=== PATIENT | male | born 1965 | race African-American/Black ===

== ENCOUNTER 2023-10-10 14:03 | Emergency (ER) | payer SELFPAY ==
[2023-10-10] VITALS (7 sets, daily range): BP systolic 81–128; BP diastolic 39–86; PULSE 60–78; RESP 16–18; TEMP 36.6–37; O2SAT 96–100; BMI 16.3
--- NOTE | 2023-10-10 | ECG_ITS ---
Test Reason : HYPOTENSION Blood Pressure : / mmHG Vent. Rate : 073 BPM Atrial Rate : 073 BPM P-R Int : 142 ms QRS Dur : 082 ms QT Int : 406 ms P-R-T Axes : 067 084 080 degrees QTc Int : 447 ms Normal sinus rhythm Possible Left atrial enlargement Borderline ECG No previous ECGs available Referred By: Generic ED Physician Electronically Signed By:DELANEY LAIRD MD
--- NOTE | ~2023-10-10 | CT_ITS ---
EXAMINATION: CT HEAD WITHOUT CONTRAST CLINICAL INFORMATION: Fall from wheelchair. COMPARISON: None available. TECHNIQUE: Contiguous axial imaging was performed from the skull base to vertex without intravenous administration of contrast. This CT examination was performed using dose optimization techniques as appropriate, variously including the following: *Automated exposure control. *Adjustment of mA and/or kV according to patient size (this includes techniques or standardized protocols for targeted exams where dose is matched to indication/reason for exam; i.e. extremities or head). *Use of iterative reconstruction technique. DLP: 647 mGy-cm FINDINGS: There is no evidence of acute intracranial hemorrhage or edematous territorial infarction. Dunham-white matter differentiation is preserved. A few foci of hypoattenuation in the periventricular and deep white matter are consistent with mild microangiopathy. Proportional prominence of the ventricles and sulcal spaces without evidence of obstructive hydrocephalus. No abnormal mass effect or midline shift. No extra-axial fluid collections. Metallic foreign bodies in the subcutaneous tissues of the posterior left side. Changes of instrumented posterior fusion of the lower cervical spine. No acute soft tissue or osseous abnormalities. Mild mucosal thickening of the paranasal sinuses. The mastoid air cells and middle ear cavities are clear. Chronic appearing depression of the left lamina papyracea. CT/CT head/brain wo IV con IMPRESSION: 1. No evidence of acute intracranial hemorrhage or edematous territorial infarction. 2. Mild underlying microangiopathy and generalized cerebral volume loss.
[2023-10-10] MEDS: Midodrine HCl 10 MG TABLET PO (14:37)
--- NOTE | 2023-10-10 14:40 | PC.NURSE ---
patient arrived via EMS from [facility], patient quadriplegic, per EMS patient fell out of chair yesterday + head strike -LOC. - Blood thinners. patient initially refused transport yesterday however facility was able to convince him this morning to come, EMS noted patient to be hypotensive with SBP in 80s, patient with no complaints, per EMS patient wanted to go to [facility] as that is where his doctors are but due to his BP they brought him here. MD at bedside to evaluate, patient to go to CT, no lab work at this time.
--- NOTE | 2023-10-10 15:43 | ED.FALL ---
HPI - Fall General Chief Complaint: Fall Stated Complaint: HYPOTENSION FALL Time Seen by Provider: 10/10/23 14:32 Source: patient Mode of arrival: EMS History of Present Illness ED Provider: Dr Salmon [facility] Narrative: 58-year-old male who is a quadriplegic at baseline, states that he fell out of his wheelchair yesterday, denies any use of chronic anticoagulation, denies any pain or acute complaints. Related Data Allergies Allergy/AdvReac Type Severity Reaction Status Date / Time Penicillins Allergy Itchy Eyes Verified 10/10/23 14:16 Sulfa (Sulfonamide Allergy Anaphylaxis Verified 10/10/23 14:16 Antibiotics) Review of Systems Review of Systems: Pertinent positives and negatives as stated in [facility] Past Medical History Source: nursing notes reviewed Social History Social History Smoked in Last 30 Days: No Advance Directives: No Advance Directives Information Provided: No Do you have a plan to hurt others: No Plan Physical Exam Vital Signs: Vital Signs: Last Vital Signs Temp 98.6 F 10/10/23 14:18 Pulse 72 10/10/23 15:22 Resp 16 10/10/23 15:22 BP 89/54 L 10/10/23 15:22 Pulse Ox 98 10/10/23 15:22 O2 Del Method Room Air 10/10/23 15:22 BMI result Body Mass Index 16.3 VITAL SIGNS: Reviewed. GENERAL: Well developed, well nourished, in no acute distress. HEAD: Normocephalic/atraumatic EYES: PERRLA, EOMI EARS: Ext canals without abnormality NOSE: Nares patent bilateral OROPHARYNX: no oral lesions noted, posterior pharynx clear NECK: Supple, no adenopathy LUNGS: Normal breath sounds. No adventitious sounds or accessory muscle use. SpO2<98> CARDIOVASCULAR: Regular rate and rhythm without noted murmurs ABDOMEN: Soft, non-tender, non-distended with bowel sounds. PELVIS: stable MUSCULOSKELETAL: No tenderness, deformities, or effusions noted on gross inspection. EXTREMITIES: No cyanosis, clubbing or edema. SKIN: Inspection of the skin reveals no rashes, ulcerations, jaundice, pallor, or petechiae. NEUROLOGIC: Alert and oriented x 4. Contracted extremities Medications Administered Discontinued Medications Generic Name Dose Route Start Last Admin Trade Name Freq PRN Reason Stop Dose Admin Midodrine 10 mg 10/10/23 14:32 10/10/23 14:37 Midodrine Hcl 10 Mg Tablet PO 10/10/23 14:33 10 mg ONCE ONE Administration Medical Decision Making Medical Decision Making [facility] Narrative: 58-year-old male with history and clinical presentation consistent with fall from wheelchair, I do not appreciate any traumatic injuries and no history of chronic anticoagulation but will scan of the head, patient is noted to have low blood pressure but suspect that this is stable for him at baseline given his neurologic status with quadriplegia. We did provide [address] scan negative for intracranial hemorrhage or mass effect and blood pressure remained stable, patient is conscious and has no evidence breathing difficulty and is oxygenating well. He is otherwise stable for discharge back to the facility. Differential Diagnosis Differential Diagnoses: The differential diagnosis associated with the presentation includes Please see the discussion above Admission/Observation Consideration of admission/observation: Escalation of care including admission/observation considered Please see the discussion above Radiology Impression Discussion of test interpretation with radiology: I have reviewed the radiologist's reading. Radiologist Impression: Please see the discussion above Critical Care Time Critical Care Time Critical Care Time: Yes Total Critical Care Time: 30 Attestation: I personally attest to this time spent taking care of the patient. Discharge Plan Discharge Clinical Impression: Fall Patient Disposition: Xfer Other Instructions: Fall Prevention (ED) Additional Instructions: Resume all home medications. Follow-up with your primary care doctor. Return to the ER for any worsening symptoms. Print Language: Tunisian
--- NOTE | 2023-10-10 15:47 | PC.NURSE ---
this RN made 3 attempts to call [facility] with no answer.
== END 2023-10-10 21:27 | disposition other institution (70) ==
PROVIDERS: Emergency Provider Student in an Organized Health Care Education/Training Program; PCP Emergency Medicine
DX: Z03.89 Encounter for observation for other suspected diseases and conditions ruled out (principal); Z91.81 History of falling; I95.9 Hypotension, unspecified; G82.20 Paraplegia, unspecified
CPT/HCPCS: 70450; 93005; 99284; 99285

== ENCOUNTER → 2023-10-10 14:54 | Outpatient (BNV) | payer SELFPAY | PROVIDERS: Emergency Provider Student in an Organized Health Care Education/Training Program; PCP Emergency Medicine; Visit Provider Internal Medicine Cardiovascular Disease | DX: I95.9 Hypotension, unspecified (principal) | CPT/HCPCS: 93010 ==